=== PATIENT | male | born 2000 | race African-American/Black ===

== ENCOUNTER 2020-02-01 23:13 | Outpatient (CLI) | payer OTHER, MEDICAID ==
[2020-02-02 18:43] LABS: SARS-CoV-2 MS2 Positive; SARS-CoV-2 N Gene Negative; SARS-CoV-2 S Gene Negative; SARS-CoV-2 orf1ab Negative
== END 2020-02-01 23:14 | disposition home or self-care (01) ==
LOC: BURLABSP 23:13
PROVIDERS: ATTEND Family Medicine
DX: Z11.59 Encounter for screening for other viral diseases (principal)
CPT/HCPCS: 87635; U0003